=== PATIENT | female | born 1985 | race Caucasian/White ===

== ENCOUNTER 2019-03-02 22:27 | Emergency (ER) | payer BC ==
[~2019-03-02] VITALS: Ht 160 cm; Wt 61.4 kg
[2019-03-02] MEDS ORDERED: diphenhydrAMINE 25mg capsule PO ONE (23:30)
[2019-03-03 00:39] VITALS: BP 92/59
--- NOTE | 2019-03-03 00:49 | NUR ---
pt reports improvement in her symptoms and that the itching is now mild and the redness toher left arm has improved. per dr. burleson pt ok to have benedryl lamont 3 hrs if needed for symptoms. verbal received for benedryl 25 mg tab prior to dc as pt reports she has not benedryl at home
[2019-03-03] MEDS ORDERED: diphenhydrAMINE 25mg capsule PO ONE (00:50)
== END 2019-03-03 00:53 | disposition home or self-care (01) ==
LOC: ER 22:28
DX: O99.711 Diseases of the skin and subcutaneous tissue complicating pregnancy, first trimester (principal); R21 Rash and other nonspecific skin eruption; Z3A.14 14 weeks gestation of pregnancy; Z88.5 Allergy status to narcotic agent
CPT/HCPCS: 99283; Q0163